=== PATIENT | male | born 1955 | race Caucasian/White ===

== ENCOUNTER → 2018-02-02 | Outpatient (CLI) | payer MEDICARE ==
--- NOTE | 2018-02-02 15:47 | XR ---
Right foot HISTORY: Heel pain 3 views of the right foot Bone mineralization, joint spaces and alignment are maintained. IMPRESSION: No significant abnormality
== END ==
LOC: RADXRYALE 14:41
PROVIDERS: ATTEND Internal Medicine
DX: M79.671 Pain in right foot (principal)

== ENCOUNTER 2021-09-05 16:56 | Emergency (ER) | payer MEDICARE ==
[2021-09-05 17:44] VITALS: BP 133/79; PULSE 75; RESP 18; TEMP 97.5
[2021-09-05] MEDS ORDERED: OXYMETAZOLINE 0.05% NASL SPRAY 1 SPRAY BOTTLE NASAL STA (18:52)
--- NOTE | 2021-09-05 18:57 | ED ---
General Adult HPI - General Chief complaint: ENT Stated complaint: Nosebleed Time Seen by Provider: 09/05/21 18:18 Source: patient, RN notes reviewed, old records reviewed Mode of arrival: ambulatory Limitations: no limitations - History of Present Illness Initial comments: This is a well-appearing 66-year-old male that presents to the emergency room wi th nose bleed that started at 3 AM. He states the left side nose has been bleeding off and on since 3 AM. He denies any other bleeding. He states he is on Plavix for cardiac stent and stent in his leg. He does have an appointment with his orthopedic brace maker on Monday. There is no active bleeding at this time. He denies any other bleeding. -: days(s) (1) Location: face (left nostril) Severity scale (1-10): 0 Consistency: now resolved Improves with: other (pressure) Worsens with: none Associated Symptoms: denies other symptoms - Related Data Home Medications Medication Instructions Recorded Confirmed ALPRAZolam [Xanax] 0.25 mg PO BID PRN 02/09/16 02/11/16 Aspirin 325 mg PO DAILY 02/09/16 02/11/16 Azithromycin [Zithromax Z-pack] 250 mg PO DIRECTED 02/09/16 02/11/16 Ibuprofen/Diphenhydramine HCl 1 each PO HS 02/09/16 02/11/16 [Advil Pm Liqui-Gels] Metoprolol Tartrate [Lopressor] 25 mg PO BID 02/09/16 02/11/16 Omeprazole 20 mg PO DAILY 02/09/16 02/11/16 Simvastatin [Zocor] 40 mg PO HS 02/09/16 02/11/16 amLODIPine BESYLATE/BENAZEPRIL 1 cap PO DAILY 02/09/16 02/11/16 [Lotrel 5-10 mg Capsule] buPROPion HCL [Wellbutrin XL] 150 mg PO DAILY 02/09/16 02/11/16 hydroCHLOROthiazide [Hydrodiuril] 12.5 mg PO DAILY 02/09/16 02/11/16 Previous Rx's Medication Instructions Recorded Hydrocodone/Acetaminophen [[place] 1 each PO Q6HR PRN #30 tab 02/11/16 5-325] Oxymetazoline 0.05% Nasl [place] 2 spray EA NOSTRIL BID #15 ml 09/05/21 [Afrin 0.05% Nasal [place]] Allergies Allergy/AdvReac Type Severity Reaction Status Date / Time cephalexin monohydrate Allergy Anaphylaxis Verified 09/05/21 17:44 [From Keflex] Review of Systems ROS Statement: Those systems with pertinent positive or pertinent negative responses have been documented in the HPI. ROS Other: All systems not noted in ROS Statement are negative. Past Medical History Past Medical History: GERD/Reflux, Hyperlipidemia, Hypertension, Osteoarthritis (OA), Sleep Apnea/CPAP/BIPAP Additional Past Medical History / Comment(s): doesn't use CPAP, on z-pack for "head congestion" History of Any Multi-Drug Resistant Organisms: None Reported Past Surgical History: Heart Catheterization With Stent, Hernia Repair, Orthopedic Surgery, Tonsillectomy Additional Past Surgical History / Comment(s): hand & foot surg Past Anesthesia/Blood Transfusion Reactions: Postoperative Nausea & Vomiting (PONV) Additional Past Anesthesia/Blood Transfusion Reaction / Comment(s): only had problem once Date of Last Stent Placement:: 2002 Past Psychological History: Anxiety Smoking Status: Former smoker Past Alcohol Use History: None Reported Past Drug Use History: None Reported - Past Family History Mother Family Medical History: Cancer Father Family Medical History: Cancer General Exam Limitations: no limitations General appearance: alert, in no apparent distress Head exam: Present: atraumatic, normocephalic, normal inspection Eye exam: Absent: normal appearance, EOMI ENT exam: Present: mucous membranes moist, other (Left nostril with dried blood active bleeding no evidence of septal hematoma). Absent: normal exam, normal oropharynx Expanded Mouth exam: Present: tongue normal, tongue elevation. Absent: normal external inspection, muffled voice Neck exam: Present: normal inspection, full ROM. Absent: tenderness, meningismus, lymphadenopathy Respiratory exam: Present: normal lung sounds bilaterally. Absent: respiratory distress, wheezes, rales, rhonchi, stridor Cardiovascular Exam: Present: regular rate, normal rhythm, normal heart sounds. Absent: systolic murmur, diastolic murmur, rubs, gallop, clicks Extremities exam: Present: other (2 small skin tears to the left forearm). Absent: normal capillary refill Back exam: Present: normal inspection, full ROM. Absent: tenderness, CVA tenderness (R), CVA tenderness (L), rash noted Neurological exam: Present: alert. Absent: oriented X3 Psychiatric exam: Present: normal affect, normal mood Skin exam: Present: warm, dry, intact, normal color. Absent: rash, cyanosis, diaphoretic Course Vital Signs 09/05/21 17:41 Temperature 97.5 F L Pulse Rate 75 Respiratory 18 Rate Blood Pressure 133/79 O2 Sat by Pulse 93 L Oximetry Medical Decision Making - Medical Decision Making Patient states that he has been in the emergency room for a couple hours and no further bleeding. There is no active bleeding at this time and there is no evidence of septal hematoma. He does take Plavix. He denies any other bleeding. Patient was given Afrin and directed to hold pressure if the nose rebleeds. He was given a nasal clamp and directed to keep head down, not to swallow blood. He was discharged home and directed to use the Afrin and follow up with his doctor as scheduled. Return to the emergency room with any new or worsening symptoms. Case discussed with Dr. Guardado Disposition Clinical Impression: Epistaxis Disposition: HOME SELF-CARE Condition: Good Instructions (If sedation given, give patient instructions): Nosebleed (ED) Additional Instructions: Use the nose clamps and leave in place for 10-15 minutes when you have a nosebleed. Keep your head down do not lean head back. Do not swallow blood. If you swallow blood it may cause vomiting. Use the Afrin nasal spray to help with congestion and keep moist. Follow-up with your primary care doctor on Monday as scheduled. Return to the emergency room with any new or concerning symptoms. Prescriptions: Oxymetazoline 0.05% Nasl [place] [Afrin 0.05% Nasal [place]] 2 spray EA NOSTRIL BID #15 ml Is patient prescribed a controlled substance at d/c from ED?: No Referrals: Ninoska Gilbert MD [Primary Care Provider] - 1-2 days Time of Disposition: 18:58
== END 2021-09-05 19:07 | disposition home or self-care (01) ==
LOC: EC 16:56
DX: R04.0 Epistaxis (principal); K21.9 Gastro-esophageal reflux disease without esophagitis; E78.5 Hyperlipidemia, unspecified; I10 Essential (primary) hypertension; M19.90 Unspecified osteoarthritis, unspecified site; F41.9 Anxiety disorder, unspecified; Z79.82 Long term (current) use of aspirin; Z88.1 Allergy status to other antibiotic agents; Z95.5 Presence of coronary angioplasty implant and graft; Z90.89 Acquired absence of other organs; Z87.891 Personal history of nicotine dependence; Z79.02 Long term (current) use of antithrombotics/antiplatelets
CPT/HCPCS: 99283

== ENCOUNTER → 2021-12-22 | Outpatient (CLI) | payer MEDICARE ==
--- NOTE | 2021-12-22 19:20 | CTL ---
EXAMINATION TYPE: CT Low Dose Lung DATE OF EXAM ORDERED: 12/22/2021 HISTORY: Tobacco use. Lung cancer screening CT DLP: 123.[address] CTDI: 3.40 mGy Automated exposure control for dose reduction was used. SCREENING VISIT: Baseline COMPARISON: No previous CT scan is available for comparison TECHNIQUE: Low dose computed tomography scan was performed through the chest at 1 mm thick sections a nd reconstructed images in multiple planes at 1 mm and [address] DIAGNOSTIC QUALITY: Limited, but interpretable FINDINGS: LUNG NODULES: None. LUNGS: COPD: Severity: Moderate to severe Fibrosis: Severity: None Lymph nodes: No pathologically enlarged Other findings: 3 mm calcified granuloma in the left upper lobe. Artifacts in the lung bases RIGHT PLEURAL SPACE: Effusion: None Calcification: None Thickening: None Pneumothorax: None LEFT PLEURAL SPACE: Effusion: None Calcification: None Thickening: None Pneumothorax: None HEART: Heart Size: Normal Coronary Calcification: Moderate Pericardial Effusion: None OTHER FINDINGS: Upper abdomen: Large hiatal hernia containing the gastric fundus. Bony thorax: No aggressive bone lesion. Supraclavicular region: None Other: Scattered arterial atherosclerotic calcifications. IMPRESSION: With the limitation of the artifactual lung bases, no definite lung nodule identified. Mo derate to severe COPD changes. Other incidental findings as described above. CT LUNG RAD AND CT CHEST RECOMMENDATION: Category 1: Continue annual screening with LDCT in 12 months . S Modifier (other clinically significant findings): None
== END | disposition home or self-care (01) ==
LOC: RADCTMAIN 12:31
PROVIDERS: ATTEND Internal Medicine
DX: Z12.2 Encounter for screening for malignant neoplasm of respiratory organs (principal); J44.9 Chronic obstructive pulmonary disease, unspecified; Z87.891 Personal history of nicotine dependence
CPT/HCPCS: 71271

== ENCOUNTER → 2023-09-07 | Outpatient (CLI) | payer MEDICARE ==
--- NOTE | 2023-09-07 09:44 | CTL ---
EXAMINATION TYPE: CT Low Dose Lung DATE OF EXAM ORDERED: 09/07/2023 COMPARISON: 12/22/2021 HISTORY: . Low Dose CT Lung Screening CT DLP: 148.[address] CTDI: 4 mGy IV CONTRAST USED: None. SCREENING VISIT: Second TECHNIQUE: Low dose computed tomography scan was performed through the chest at 1 millimeter thick se ctions and reconstructed images in the coronal plane at [address] DIAGNOSTIC QUALITY: Satisfactory FINDINGS: LUNG NODULES: Not presentLeft lung: no nodules identified.Right lung: no nodules identified. LUNGS: COPD: Severity: Mild centrilobular emphysema Fibrosis: Severity:None Lymph nodes: None Other findings: None RIGHT PLEURAL SPACE: Effusion: None Calcification: None Thickening: None Pneumothorax: None LEFT PLEURAL SPACE: Effusion: None Calcification: None Thickening: None Pneumothorax: None HEART: Heart Size: Mildly enlarged Coronary calcification: Mild Pericardial effusion: None OTHER FINDINGS: Upper abdomen: No significant abnormality Bony thorax: Degenerative changes Supraclavicular region: No significant abnormalityOther: Fixed hiatal hernia. IMPRESSION: No distinct pulmonary nodularity appreciated. FOLLOW UP CT CHEST RECOMMENDATION: Follow-up screening in one year CT LUNG RAD: LUNG RAD CATEGORY 1 negative
== END | disposition home or self-care (01) ==
LOC: RADCTMAIN 08:10
PROVIDERS: ATTEND Internal Medicine
DX: J43.2 Centrilobular emphysema (principal); Z87.891 Personal history of nicotine dependence
CPT/HCPCS: 71271

== ENCOUNTER 2024-05-23 11:34 | Emergency (ER) | payer MEDICARE ==
--- NOTE | 2024-05-23 12:07 | ED ---
General Adult HPI - General Chief complaint: Shortness of Breath Stated complaint: AMADA Time Seen by Provider: 05/23/24 11:50 Source: patient, EMS, RN notes reviewed, old records reviewed Mode of arrival: EMS Limitations: no limitations - History of Present Illness Initial comments: This is a 68-year-old male who presents to the emergency department stating he has a history of COPD. Patient states he got home from breakfast and he went in the house and he started becoming very short of breath. Patient thought it was because of the heat so he turned on the air conditioner cooler and patient states it did not help and he became more short of breath so he went to urgent care in the urgent care directly sent him to the emergency department. Patient denies any chest pain or palpitations. Patient states currently is not having shortness of breath. Patient denies any recent fever chills or cough. Patient [place] any back pain or abdominal pain. - Related Data Home Medications Medication Instructions Recorded Confirmed ALPRAZolam [Xanax] 0.25 mg PO BID PRN 02/09/16 02/11/16 Aspirin 325 mg PO DAILY 02/09/16 02/11/16 Azithromycin [Zithromax Z-pack] 250 mg PO DIRECTED 02/09/16 02/11/16 Ibuprofen/Diphenhydramine HCl 1 each PO HS 02/09/16 02/11/16 [Advil Pm Liqui-Gels] Metoprolol Tartrate [Lopressor] 25 mg PO BID 02/09/16 02/11/16 Omeprazole 20 mg PO DAILY 02/09/16 02/11/16 Simvastatin [Zocor] 40 mg PO HS 02/09/16 02/11/16 amLODIPine BESYLATE/BENAZEPRIL 1 cap PO DAILY 02/09/16 02/11/16 [Lotrel 5-10 mg Capsule] buPROPion HCL [Wellbutrin XL] 150 mg PO DAILY 02/09/16 02/11/16 hydroCHLOROthiazide [Hydrodiuril] 12.5 mg PO DAILY 02/09/16 02/11/16 Previous Rx's Medication Instructions Recorded Hydrocodone/Acetaminophen [[place] 1 each PO Q6HR PRN #30 tab 02/11/16 5-325] Oxymetazoline 0.05% Nasl [place] 2 spray EA NOSTRIL BID #15 ml 09/05/21 [Afrin 0.05% Nasal [place]] predniSONE [Deltasone] 40 mg PO DAILY #8 tab 05/23/24 Allergies Allergy/AdvReac Type Severity Reaction Status Date / Time cephalexin monohydrate Allergy Anaphylaxis Verified 05/23/24 11:40 [From Keflex] Review of Systems ROS Statement: Those systems with pertinent positive or pertinent negative responses have been documented in the HPI. ROS Other: All systems not noted in ROS Statement are negative. Past Medical History Past Medical History: GERD/Reflux, Hyperlipidemia, Hypertension, Osteoarthritis (OA), Sleep Apnea/CPAP/BIPAP Additional Past Medical History / Comment(s): doesn't use CPAP, on z-pack for "head congestion" History of Any Multi-Drug Resistant Organisms: None Reported Past Surgical History: Heart Catheterization With Stent, Hernia Repair, Orthopedic Surgery, Tonsillectomy Additional Past Surgical History / Comment(s): hand & foot surg Past Anesthesia/Blood Transfusion Reactions: Postoperative Nausea & Vomiting (PONV) Additional Past Anesthesia/Blood Transfusion Reaction / Comment(s): only had problem once Date of Last Stent Placement:: 2002 Past Psychological History: Anxiety Smoking Status: Former smoker Past Alcohol Use History: None Reported Past Drug Use History: None Reported - Past Family History Mother Family Medical History: Cancer Father Family Medical History: Cancer General Exam - General Exam Comments Initial Comments: GENERAL: Patient is well-developed and well-nourished. Patient is nontoxic and well- hydrated and is in no acute distress. ENT: Neck is soft and supple. No significant lymphadenopathy is noted. Oropharynx is clear. Moist mucous membranes. Neck has full range of motion without eliciting any pain. EYES: The sclera were anicteric and conjunctiva were pink and moist. Extraocular movements were intact and pupils were equal round and reactive to light. Eyelids were unremarkable. PULMONARY: Unlabored respirations. Good breath sounds bilaterally. No audible rales rhonchi or wheezing was noted. CARDIOVASCULAR: There is a regular rate and rhythm without any murmurs gallops or rubs. ABDOMEN: Soft and nontender with normal bowel sounds. SKIN: Skin is clear with no lesions or rashes and otherwise unremarkable. NEUROLOGIC: Patient is alert and oriented x3. Cranial nerves II through XII are grossly int act. Motor and sensory are also intact. Normal speech, volume and content. Symmetrical smile. MUSCULOSKELETAL: Normal extremities with adequate strength and full range of motion. LYMPHATICS: No significant lymphadenopathy is noted PSYCHIATRIC: Normal psychiatric evaluation. Limitations: no limitations Course Vital Signs 05/23/24 05/23/24 11:36 13:05 Temperature 99.2 F Pulse Rate 91 90 Respiratory 20 16 Rate Blood Pressure 138/85 137/97 O2 Sat by Pulse 98 95 Oximetry Medical Decision Making - Medical Decision Making EKG is interpreted by myself but EKG shows a sinus rhythm at 91 bpm. MO interval is 71 QRS 115 QT interval 335 QTc is 384. Patient's EKG shows no ST segment elevation or depression. Was pt. sent in by a medical professional or institution (, [facility], [facility], urgent care, hospital, or senior living...) When possible be specific @ -No Did you speak to anyone other than the patient for history (EMS, parent, family, police, friend...)? What history was obtained from this source @ -No Did you review nursing and triage notes (agree or disagree)? Why? @ -I reviewed and agree with nursing and triage notes Were old charts reviewed (outside hosp., previous admission, EMS record, old EKG, old radiological studies, urgent care reports/EKG's, senior living records)? Report findings @ -No old charts were reviewed Differential Diagnosis? @ -Differential Dyspnea: Coronary syndrome, arrhythmia, tamponade, asthma, COPD, pulmonary embolism, pneumonia, pneumothorax, pulmonary effusion, anaphylaxis, diabetic ketoacidosis, flailed chest, pulmonary contusion, diaphragmatic rupture, anemia, neuromuscular, this is not meant to be an all-inclusive list. EKG interpreted by me (3pts min.). @ -As above X-rays interpreted by me (1pt min.). @ -Chest x-ray shows no acute normality CT interpreted by me (1pt min.). @ -None done U/S interpreted by me (1pt. min.). @ -None done What testing was considered but not performed or refused? (CT, X-rays, U/S, labs)? Why? @ -None What meds were considered but not given or refused? Why? @ -None Did you discuss the management of the patient with other professionals (professionals i.e. , [facility], [facility], lab, RT, psych nurse, geriatric social work professor, hotel maintenance technician, teacher, principal gifts officer, case making machine operator)? Give summary @ -No Was smoking cessation discussed for >3mins.? @ -No Was critical care preformed (if so, how long)? @ -No Were there social determinants of health that impacted care today? How? (Homelessness, low income, unemployed, alcoholism, drug addiction, transportation, low edu. Level, literacy, decrease access to med. care, senior care, rehab)? @ -No Was there de-escalation of care discussed even if they declined (Discuss DNR or withdrawal of care, Hospice)? DNR status @ -No What co-morbidities impacted this encounter? (DM, HTN, Smoking, COPD, CAD, Cancer, CVA, ARF, Chemo, Hep., AIDS, mental health diagnosis, sleep apnea, morbid obesity)? @ -None Was patient admitted / discharged? Hospital course, mention meds given and route, prescriptions, significant lab abnormalities, going to OR and other p ertinent info. @ -Patient's pulse ox in the emergency department on room air throughout his course was between 93 and 95%. I went back and discussed results with the patient however at that time I listen to his lungs and was a little bit of wheezing so the patient did receive a breathing treatment and steroids. Patient was up and ambulatory and was not feeling short of breath at that time patient will be discharged home on steroids and continue to take his breathing treatments at home Undiagnosed new problem with uncertain prognosis? @ -No Drug Therapy requiring intensive monitoring for toxicity (Heparin, Nitro, Insulin, Cardizem)? @ -No Were any procedures done? @ -No Diagnosis/symptom? @ -COPD exacerbation Acute, or Chronic, or Acute on Chronic? @ -acute Uncomplicated (without systemic symptoms) or Complicated (systemic symptoms)? @ -Complicated Side effects of treatment? @ -No Exacerbation, Progression, or Severe Exacerbation? @ -No Poses a threat to life or bodily function? How? (Chest pain, [place], SC, pneumonia, PE, COPD, DKA, ARF, appy, cholecystitis, CVA, Diverticulitis, Homicidal, Suicidal, threat to staff... and all critical care pts) @ -No - Lab Data Result diagrams: 05/23/24 12:07 05/23/24 12:07 Lab Results 05/23/24 05/23/24 05/23/24 Range/Units 12:07 12:07 12:07 WBC 12.2 H (3.8-10.6) k/uL RBC 4.44 (4.30-5.90) m/uL Hgb 13.8 (13.0-17.5) gm/dL Hct 42.0 (39.0-53.0) % MCV 94.6 (80.0-100.0) fL MCH 31.0 (25.0-35.0) pg MCHC 32.8 (31.0-37.0) g/dL RDW 15.6 H (11.5-15.5) % Plt Count 219 (150-450) k/uL MPV 8.1 Neutrophils % 81 % Lymphocytes % 7 % Monocytes % 8 % Eosinophils % 2 % Basophils % 0 % Neutrophils # 9.9 H (1.3-7.7) k/uL Lymphocytes # 0.9 L (1.0-4.8) k/uL Monocytes # 1.0 (0-1.0) k/uL Eosinophils # 0.2 (0-0.7) k/uL Basophils # 0.0 (0-0.2) k/uL Hypochromasia Slight PT 10.4 (10.0-12.5) sec INR 0.9 (<1.2) APTT 21.3 L (22.0-30.0) sec D-Dimer 0.52 (<0.60) mg/L FEU Sodium 141 (137-145) mmol/L Potassium 4.3 (3.5-5.1) mmol/L Chloride 106 (98-107) mmol/L Carbon Dioxide 29 (22-30) mmol/L Anion Gap 6 mmol/L BUN 22 H (9-20) mg/dL Creatinine 0.88 (0.66-1.25) mg/dL Est GFR (CKD-EPI)AfAm >90 (>60 ml/min/1.73 sqM) Est GFR (CKD-EPI)NonAf 87 (>60 ml/min/1.73 sqM) Glucose 108 H (74-99) mg/dL Plasma Lactic Acid Arias (0.7-2.0) mmol/L Calcium 9.2 (8.4-10.2) mg/dL Magnesium 1.7 (1.6-2.3) mg/dL Total Bilirubin 0.8 (0.2-1.3) mg/dL AST 32 (17-59) U/L ALT 19 (4-49) U/L Alkaline Phosphatase 64 (38-126) U/L Troponin I (0.000-0.034) ng/mL NT-Pro-B Natriuret Pep <20 pg/mL Total Protein 6.6 (6.3-8.2) g/dL Albumin 4.0 (3.5-5.0) g/dL 05/23/24 05/23/24 Range/Units 12:07 12:07 WBC (3.8-10.6) k/uL RBC (4.30-5.90) m/uL Hgb (13.0-17.5) gm/dL Hct (39.0-53.0) % MCV (80.0-100.0) fL MCH (25.0-35.0) pg MCHC (31.0-37.0) g/dL RDW (11.5-15.5) % Plt Count (150-450) k/uL MPV Neutrophils % % Lymphocytes % % Monocytes % % Eosinophils % % Basophils % % Neutrophils # (1.3-7.7) k/uL Lymphocytes # (1.0-4.8) k/uL Monocytes # (0-1.0) k/uL Eosinophils # (0-0.7) k/uL Basophils # (0-0.2) k/uL Hypochromasia PT (10.0-12.5) sec INR (<1.2) APTT (22.0-30.0) sec D-Dimer (<0.60) mg/L FEU Sodium (137-145) mmol/L Potassium (3.5-5.1) mmol/L Chloride (98-107) mmol/L Carbon Dioxide (22-30) mmol/L Anion Gap mmol/L BUN (9-20) mg/dL Creatinine (0.66-1.25) mg/dL Est GFR (CKD-EPI)AfAm (>60 ml/min/1.73 sqM) Est GFR (CKD-EPI)NonAf (>60 ml/min/1.73 sqM) Glucose (74-99) mg/dL Plasma Lactic Acid [place] 1.5 (0.7-2.0) mmol/L Calcium (8.4-10.2) mg/dL Magnesium (1.6-2.3) mg/dL Total Bilirubin (0.2-1.3) mg/dL AST (17-59) U/L ALT (4-49) U/L Alkaline Phosphatase (38-126) U/L Troponin I <0.012 (0.000-0.034) ng/mL NT-Pro-B Natriuret Pep pg/mL Total Protein (6.3-8.2) g/dL Albumin (3.5-5.0) g/dL Disposition Clinical Impression: Acute exacerbation of chronic obstructive pulmonary disease Disposition: HOME SELF-CARE Condition: Good Instructions (If sedation given, give patient instructions): COPD (Chronic Obstructive Pulmonary Disease) (ED) Prescriptions: predniSONE [Deltasone] 40 mg PO DAILY #8 tab Is patient prescribed a controlled substance at d/c from ED?: No Referrals: Ninoska Gilbert MD [Primary Care Provider] - 1-2 days Time of Disposition: 14:33
[2024-05-23 12:22] LABS: Basophils % (A) 0 %; Eosinophils # (A) 0.2 k/uL (0-0.7); Eosinophils % (A) 2 %; HGB 13.8 gm/dL (13.0-17.5); Hypochromasia Slight; Lymphocytes # (A) 0.9 k/uL (1.0-4.8); Lymphocytes % (A) 7 %; MCHC 32.8 g/dL (31.0-37.0); MCV 94.6 fL (80.0-100.0); Mean Platelet Volume 8.1; Monocytes % (A) 8 %; Neutrophils # (A) 9.9 k/uL (1.3-7.7); Neutrophils % (A) 81 %; Platelet Count 219 k/uL (150-450); RBC 4.44 m/uL (4.30-5.90); RDW 15.6 % (11.5-15.5); WBC 12.2 k/uL (3.8-10.6)
[2024-05-23 12:35] LABS: ALT 19 U/L (4-49); African American GFR (CKD) >90 (>60 ml/min/1.73 sqM); Anion Gap 6 mmol/L; Blood Urea Nitrogen 22 mg/dL (9-20); Calcium 9.2 mg/dL (8.4-10.2); Carbon Dioxide 29 mmol/L (22-30); Chloride 106 mmol/L (98-107); Glucose 108 mg/dL (74-99); Non-African American GFR(CKD) 87 (>60 ml/min/1.73 sqM); Sodium 141 mmol/L (137-145); Total Bilirubin 0.8 mg/dL (0.2-1.3); Total Protein 6.6 g/dL (6.3-8.2)
[2024-05-23 12:41] LABS: AST 32 U/L (17-59); Potassium 4.3 mmol/L (3.5-5.1)
[2024-05-23 12:42] LABS: Alkaline Phosphatase 64 U/L (38-126); Magnesium 1.7 mg/dL (1.6-2.3); NT-Pro-B-Type Natriuretic Pept <20 pg/mL
[2024-05-23 12:46] LABS: INR 0.9 (<1.2); Partial Thromboplastin Time 21.3 sec (22.0-30.0); Prothrombin Time 10.4 sec (10.0-12.5)
--- NOTE | 2024-05-23 13:03 | XR ---
EXAMINATION TYPE: XR chest 2V DATE OF EXAM: 05/23/2024 12:30 PM CLINICAL INDICATION:Male, 68 years old with history of difficulty breathing; [facility] COMPARISON: Chest radiographs from 06/29/2016 TECHNIQUE: XR chest 2V Frontal view of the chest. FINDINGS: Lungs/Pleura: There is no evidence of pleural effusion, focal consolidation, or pneumothorax. Pulmonary vascularity: Unremarkable. Heart/mediastinum: Cardiomediastinal silhouette is unremarkable. Musculoskeletal: No acute osseous pathology. Other findings: None IMPRESSION: No acute cardiopulmonary disease/process.
[2024-05-23] MEDS: IPRATROPIUM-ALBUTEROL 3 ML NEB INHALATION STA (14:49)
[2024-05-23] MEDS: methylPREDNISolone SOD SUCCI 125 MG/2 ML VIAL IV STA (15:12)
[2024-05-23 15:17] VITALS: BP 141/78; PULSE 78; RESP 17; TEMP 98.8
== END 2024-05-23 15:17 | disposition home or self-care (01) ==
LOC: EC 11:34
DX: J44.1 Chronic obstructive pulmonary disease with (acute) exacerbation (principal); Z87.891 Personal history of nicotine dependence; Z88.1 Allergy status to other antibiotic agents
CPT/HCPCS: 36415; 94640; 93005; 85379; 83880; 80053; 83605; 83735; 84484; 85025; 85610; 85730; 71046; 99285; 96374; J2919